=== PATIENT | male | born 1975 | race Caucasian/White ===

== ENCOUNTER → 2019-06-18 | Outpatient (REF) ==
--- NOTE | 2019-06-18 08:51 | RADIOLOGY IMAGING REPORT ---
FACILITY: [facility] [place] PATIENT NAME: Luciano Ramirez : 1975 MR: [id number] V: [id number] EXAM DATE: ORDERING PHYSICIAN: ALISHA DOTY TECHNOLOGIST: Location: [facility] Patient: Luciano Ramirez : 1975 Visit/Account:[id number] Date of Sevice: 06/18/2019 ABDOMEN COMPLETE HISTORY: Elevated liver enzymes. Thrombocytopenia. COMPARISON: None. FINDINGS: Liver: Mildly enlarged measuring approximately 18 cm in length. Coarse heterogeneous echotexture wit hout visualized hepatic lesions. Smooth hepatic contour. Gallbladder: There are least 2 fixed echogenic foci along the gallbladder wall, the largest of which measures up to 6 mm. No visualized color flow or shadowing. Gallbladder is otherwise unremarkable. Common duct: Normal, 3 mm diameter. Pancreas: Partially obscured by bowel, visualized aspects unremarkable. Spleen: Negative. Kidneys: Negative. Upper abdominal aorta and IVC: Patent. Ascites: None visualized. IMPRESSION: 1. No acute findings. 2. Mildly enlarged liver with nonspecific coarse heterogeneous echotexture which may be related to c hronic hepatocellular disease. 3. At least 2 fixed echogenic foci along the gallbladder wall measuring up to 6 mm, likely represent ing small gallbladder wall polyps and less likely adherent gallstones. Consider optional twelve-manish h ultrasound follow-up to ensure stability. Report Dictated By: Dominguez Macdonald MD at 06/18/2019 8:41 AM Report E-Signed By: Dominguez Macdonald MD at 06/18/2019 8:44 AM WSN:[email or web address]
== END ==
LOC: US 07:52
PROVIDERS: ATTEND Nurse Practitioner
DX: R16.0 Hepatomegaly, not elsewhere classified (principal)
CPT/HCPCS: 76700